=== PATIENT | female | born 1965 | race Caucasian/White ===

== ENCOUNTER 2019-07-20 10:51 | Emergency (ER) | payer MEDICARE, MEDICAID ==
[~2019-07-20] VITALS: Ht 167.6 cm; Wt 59.0 kg
[2019-07-20 11:00] VITALS: BP 104/73
[2019-07-20] MEDS ORDERED: TETanus/Pertussis (Acell)/Diphther VAC/PF (Tdap-Adult) 0.5ml syringe IMVAC ONE (12:20)
[2019-07-20] MEDS ORDERED: L. R1CAP4 PO (12:50)
[2019-07-20] MEDS ORDERED: AMOX-580 PO (12:50)
[2019-07-20] MEDS ORDERED: HYDROcodone/acetaminophen 5mg/325mg tablet PO ONE (13:05)
== END 2019-07-20 13:45 | disposition home or self-care (01) ==
LOC: ER 10:52
DX: S61.031A Puncture wound without foreign body of right thumb without damage to nail, initial encounter (principal); S61.431A Puncture wound without foreign body of right hand, initial encounter; S61.231A Puncture wound without foreign body of left index finger without damage to nail, initial encounter; F17.200 Nicotine dependence, unspecified, uncomplicated; Z79.899 Other long term (current) drug therapy; W54.0XXA Bitten by dog, initial encounter; Y93.89 Activity, other specified; Y92.89 Other specified places as the place of occurrence of the external cause; Y99.8 Other external cause status
CPT/HCPCS: 73130; 90471; 99283